=== PATIENT | female | born 1955 | race Caucasian/White ===

== ENCOUNTER 2018-07-02 08:48 | Day surgery (SDC) | payer OTHER ==
[2018-07-01 15:51] VITALS: BMI 47.9
[2018-07-02] MEDS ORDERED: PROPOFOL 200 MG/20 ML VIAL ONE (13:07)
--- NOTE | 2018-07-02 19:05 | OP ---
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 PROCEDURE PERFORMED: Colonoscopy with snare polypectomy. INDICATION: A 62-year-old woman with a family history of colon cancer in multiple first-degree relatives (mother and brother), here for high-risk screening colonoscopy. Her last colonoscopy was normal, 5 years ago. MEDICATIONS: See Anesthesia record. FINDINGS: After discussion of the risk, benefits, and alternatives of the procedure, informed consent was obtained and witnessed. Pre-endoscopic cardiopulmonary examination was satisfactory. Time-out was performed before sedation was achieved. Sedation was achieved with Anesthesia assistance in the endoscopy unit. Digital rectal exam was performed, which demonstrated some external hemorrhoids. A Pentax adult colonoscope was inserted into the anus and passed forward to the cecum in the usual fashion. The cecal base was identified by the appendiceal orifice as well as the ileocecal valve. The terminal ileum was not intubated. The colonoscope was slowly withdrawn in a gradual and circumferential manner with careful examination of the entire colonic mucosa. The quality of the prep was good. There was some scattered diverticulosis in the descending colon and sigmoid colon with no evidence of diverticulitis. There was a 1-mm polyp in the sigmoid colon, which was completely removed with cold snare, but not retrieved for pathology. There was another tiny 1-mm polyp in the rectum, which appeared hyperplastic. This was also removed with cold snare, but not retrieved for pathology. Retroflexion in the rectum demonstrated some internal hemorrhoids. The colonoscope was completely withdrawn, and the patient allowed to recover. The patient tolerated the procedure well. There were no immediate postprocedure complications. IMPRESSION: 1. 1 mm sigmoid colon polyp, completely removed with cold snare, not retrieved. 2. 1 mm rectal polyp, completely removed with cold snare, not retrieved. 3. Left-sided diverticulosis. 4. Internal and external hemorrhoids. RECOMMENDATION: Repeat colonoscopy for screening at a [id number]. Job ID: [id number]
== END 2018-07-02 12:20 | disposition home or self-care (01) ==
LOC: SDC 08:48
PROVIDERS: ATTEND Internal Medicine
PROC: 0DBN8ZZ Excision of Sigmoid Colon, Via Natural or Artificial Opening Endoscopic (ICD-10-PCS; principal; 2018-07-02)
PROC: 0DBP8ZZ Excision of Rectum, Via Natural or Artificial Opening Endoscopic (ICD-10-PCS; principal; 2018-07-02)
DX: Z12.11 Encounter for screening for malignant neoplasm of colon (principal); K57.30 Diverticulosis of large intestine without perforation or abscess without bleeding; K63.5 Polyp of colon; K64.4 Residual hemorrhoidal skin tags; K64.8 Other hemorrhoids; Z80.0 Family history of malignant neoplasm of digestive organs; Z91.040 Latex allergy status; Z79.899 Other long term (current) drug therapy
CPT/HCPCS: J2704